=== PATIENT | male | born 1940 | race Hispanic/Latino ===

== ENCOUNTER 2023-05-28 07:20 | Day surgery (SDC) | payer MEDICARE ==
[2023-05-22 13:37] LABS: BASOPHILS # (AUTO) 0.01 K/uL (0.00-0.20); BASOPHILS % (AUTO) 0.2 % (0.0-5.0); EOSINOPHILS # (AUTO) 0.07 K/uL (0.00-0.70); EOSINOPHILS % (AUTO) 1.4 % (0.0-8.0); HEMATOCRIT 32.7 % (42-54); IMMATURE GRANULOCYTE ABSOLUTE 0.03 K/uL (0-1); LYMPHOCYTES # (AUTO) 1.1 K/uL (1.0-4.8); LYMPHOCYTES % (AUTO) 21.3 % (21.0-51.0); MEAN CORPUSCULAR HGB CONC 32.7 g/dL (32.0-36.0); MEAN CORPUSCULAR VOLUME 97.9 fL (79-99); MONOCYTES # (AUTO) 0.5 K/uL (0.1-1.0); MONOCYTES % (AUTO) 9.9 % (3.0-13.0); NEUTROPHILS # (AUTO) 3.5 K/uL (1.8-7.7); NEUTROPHILS % (AUTO) 66.6 % (40.0-77.0); PLATELET COUNT (AUTO) 261 K/uL (130-400); RED BLOOD CELL COUNT(AUTO) 3.34 MIL/uL (4.50-6.20); RED CELL DISTRIBUTION WIDTH 12.8 % (11.0-15.5); WHITE BLOOD COUNT (AUTO) 5.2 K/uL (4.8-10.8)
[2023-05-22 13:40] LABS: BILIRUBIN,URINE NEGATIVE (NEGATIVE); COLOR,URINE LIGHT-YELLOW (YELLOW); GLUCOSE, URINE (UA) NEGATIVE (NEGATIVE); KETONES,URINE NEGATIVE (NEGATIVE); LEUKOCYTE ESTERASE ,URINE 500 Leu/uL (NEGATIVE); NITRATE,URINE NEGATIVE (NEGATIVE); OCCULT BLOOD,URINE MODERATE (NEGATIVE); PROTEIN,URINE 50 mg/dL (NEGATIVE); UROBILINOGEN,URINE 0.2 mg/dL (0.2-1.0)
[2023-05-22 13:41] LABS: ADD UA MICROSCOPIC YES; APPEARANCE,URINE HAZY (CLEAR)
[2023-05-22 13:47] LABS: CREATININE 2.5 mg/dL (0.5-1.5); POTASSIUM 4.4 mmol/L (3.5-5.1)
[2023-05-22 13:50] LABS: INR 0.94 (0.85-1.15)
[2023-05-22 13:51] LABS: PARTIAL THROMBOPLASTIN TIME 28.4 SEC (26.3-35.5)
[2023-05-22 13:55] LABS: BACTERIA,URINE MOD /HPF (None Seen); MUCUS,URINE RARE LPF (None Seen); RBC,URINE 26-50 /HPF (0-1); SQUAMOUS EPITHELIAL CELL,UR RARE /HPF (0-2); WBC CLUMP RARE /HPF (0-1); WBC,URINE 51-100 /HPF (0-1)
[2023-05-22 14:35] VITALS: BP 194/89; PULSE 61; RESP 19
[~2023-05-28] VITALS: Ht 167.6 cm; Wt 74.4 kg
[2023-05-28] VITALS (17 sets, daily range): BP systolic 118–170; BP diastolic 59–78; PULSE 47–56; RESP 12–16
[~2023-05-28 07:20] MED LIST: ATOR20TA65 PO; DILT240C97 PO; FINA-37 PO; LEVO25TA54 PO; MEMA10TA55 PO; MONT5TAB25 PO; tamsulosin PO
[2023-05-28] MEDS ORDERED: DEXAMETHASONE SOD PHOSPHATE 10MG/ML 1ML VIAL ONE (07:46)
[2023-05-28] MEDS ORDERED: ROCURONIUM BROMIDE 10MG/1ML 5ML VL ONE (07:47)
[2023-05-28] MEDS ORDERED: LIDOCAINE PF 100MG/5ML (2%) SYRINGE 5ML ONE (07:47)
[2023-05-28] MEDS ORDERED: MIDAZOLAM HCL 1 MG/ML 2ML VIAL ONE (07:47)
[2023-05-28] MEDS ORDERED: SUCCINYLCHOLINE CHLORIDE 20 MG/ML 10 ML VIAL ONE (07:47)
[2023-05-28] MEDS ORDERED: GLYCOPYRROLATE 0.2 MG/ML 5 ML VIAL ONE (07:47)
[2023-05-28] MEDS ORDERED: PROPOFOL 10 MG/ML 20ML VIAL IV ONE (07:47)
[2023-05-28] MEDS ORDERED: NEOSTIGMINE METHYLSULFATE 1MG/ML IV ONE (07:47)
[2023-05-28] MEDS ORDERED: ONDANSETRON 4MG INJ ONE (07:47)
[2023-05-28] MEDS ORDERED: FENTANYL CITRATE PF 50 MCG/1 ML 2ML VIAL ONE ×3 (07:48→10:46)
[2023-05-28] MEDS: LACTATED RINGERS 1000ML 1,000 ML IV ONE (08:45)
[2023-05-28] MEDS: GENTAMICIN 80 MG/NS 100 ML PB 100 ML IV ONE (08:46)
[2023-05-28] MEDS ORDERED: LEVO-70 PO (09:28)
[2023-05-28] MEDS ORDERED: TAMS-1 PO (09:28)
[2023-05-28] MEDS: CEFTRIAXONE 1G VIAL ONE (09:28)
[2023-05-28] MEDS ORDERED: LATA2.5D14 OP (09:28)
[2023-05-28] MEDS: CEFTRIAXONE 1G VIAL IVPB ONE (09:45)
[2023-05-28 12:42] LABS: HEMATOCRIT 27.9 % (42-54); MEAN CORPUSCULAR HGB CONC 33.3 g/dL (32.0-36.0); MEAN CORPUSCULAR VOLUME 95.9 fL (79-99); RED BLOOD CELL COUNT(AUTO) 2.91 MIL/uL (4.50-6.20); RED CELL DISTRIBUTION WIDTH 12.6 % (11.0-15.5); WHITE BLOOD COUNT (AUTO) 6.3 K/uL (4.8-10.8)
[2023-05-28 12:53] LABS: CREATININE 2.5 mg/dL (0.5-1.5); POTASSIUM 4.4 mmol/L (3.5-5.1)
[2023-05-28] MEDS ORDERED: BACITRACIN 1 EACH PACKET TP ONE (13:39)
== END 2023-05-28 14:13 | disposition home or self-care (01) ==
LOC: DAH 07:20
PROVIDERS: ATTEND Urology
DX: N40.1 Benign prostatic hyperplasia with lower urinary tract symptoms (principal); R33.8 Other retention of urine; N41.1 Chronic prostatitis; N32.89 Other specified disorders of bladder; E03.9 Hypothyroidism, unspecified; I12.9 Hypertensive chronic kidney disease with stage 1 through stage 4 chronic kidney disease, or unspecified chronic kidney disease; N18.9 Chronic kidney disease, unspecified; Z79.899 Other long term (current) drug therapy; Z79.01 Long term (current) use of anticoagulants; Z85.51 Personal history of malignant neoplasm of bladder; Z79.890 Hormone replacement therapy
CPT/HCPCS: 80048 ×2; 85025; 85610; 85730; 87077; 87088; 87186; 81001; 36415 ×2; 71045; 93005; 52648; 85027; 88305; A6260; A4663; J7030; A4354; J7120; J3010 ×3; J1100; J0330; J3490 ×2; J2001; J0696 ×2; J2250; J2704; J2405; J2710; J1580; A4358 ×2; A4215; A4223; A4335; A4222; A4221; A4600; A4606; A4216

== ENCOUNTER 2023-07-16 00:26 | Emergency (ER) | payer MEDICARE ==
[~2023-07-16] VITALS: Ht 165.1 cm; Wt 74.4 kg
[~2023-07-16 00:26] MED LIST changes: +LATA2.5D14 OP; +LEVO-70 PO; +TAMS-1 PO; -tamsulosin PO
[2023-07-16 02:02] LABS: BASOPHILS # (AUTO) 0.01 K/uL (0.00-0.20); BASOPHILS % (AUTO) 0.1 % (0.0-5.0); EOSINOPHILS # (AUTO) 0.14 K/uL (0.00-0.70); HEMATOCRIT 28.5 % (42-54); IMMATURE GRANULOCYTE ABSOLUTE 0.04 K/uL (0-1); LYMPHOCYTES % (AUTO) 14.9 % (21.0-51.0); MEAN CORPUSCULAR HEMOGLOBIN 32.5 pg (27.0-33.0); MEAN CORPUSCULAR HGB CONC 32.6 g/dL (32.0-36.0); MEAN CORPUSCULAR VOLUME 99.7 fL (79-99); MONOCYTES # (AUTO) 0.6 K/uL (0.1-1.0); MONOCYTES % (AUTO) 8.9 % (3.0-13.0); NEUTROPHILS % (AUTO) 73.5 % (40.0-77.0); PLATELET COUNT (AUTO) 207 K/uL (130-400); RED BLOOD CELL COUNT(AUTO) 2.86 MIL/uL (4.50-6.20); WHITE BLOOD COUNT (AUTO) 6.9 K/uL (4.8-10.8)
[2023-07-16 02:07] LABS: APPEARANCE,URINE CLOUDY (CLEAR); BILIRUBIN,URINE NEGATIVE (NEGATIVE); COLOR,URINE LIGHT-ORANGE (YELLOW); GLUCOSE, URINE (UA) NEGATIVE (NEGATIVE); KETONES,URINE NEGATIVE (NEGATIVE); LEUKOCYTE ESTERASE ,URINE 500 Leu/uL (NEGATIVE); NITRATE,URINE NEGATIVE (NEGATIVE); OCCULT BLOOD,URINE LARGE (NEGATIVE); PROTEIN,URINE 70 mg/dL (NEGATIVE); UROBILINOGEN,URINE 0.2 mg/dL (0.2-1.0)
[2023-07-16 02:16] LABS: ADD UA MICROSCOPIC YES
[2023-07-16 02:18] LABS: CREATININE 2.5 mg/dL (0.5-1.3); POTASSIUM 4.8 mmol/L (3.5-5.1)
[2023-07-16 02:23] LABS: ALBUMIN 3.6 g/dL (3.5-5.0); BILIRUBIN,TOTAL 0.4 mg/dL (0.2-1.0); TOTAL PROTEIN, SERUM 7.4 g/dL (6.0-8.3)
[2023-07-16 02:26] LABS: BACTERIA,URINE FEW /HPF (None Seen); RBC,URINE TNTC /HPF (0-1); WBC CLUMP MANY /HPF (0-1); WBC,URINE TNTC /HPF (0-1); YEAST,URINE BUDDING MOD /HPF (None Seen)
[2023-07-16] MEDS ORDERED: CEPH500T PO (02:53)
[2023-07-16 03:22] VITALS: BP 157/73; PULSE 65; RESP 18; O2SAT 99
== END 2023-07-16 03:23 | disposition home or self-care (01) ==
LOC: EDH 00:26
DX: R33.9 Retention of urine, unspecified (principal); N39.0 Urinary tract infection, site not specified; Z79.890 Hormone replacement therapy; Z79.899 Other long term (current) drug therapy
CPT/HCPCS: 36415; 51702; 80053; 81001; 85025; 87077; 87088; 87186